=== PATIENT | female | born 1970 | race Caucasian/White ===

== ENCOUNTER 2019-07-13 09:02 | Emergency (ER) | payer SELFPAY ==
[~2019-07-13] VITALS: Ht 167.6 cm; Wt 59.0 kg
[~2019-07-13 09:02] MED LIST: BACTRIM DS TAB1 EACH PO; CELEXA40 MG PO; CEPHALEXIN500 MG PO; DAYPRO600 MG PO; IBUPROFEN600 MG PO; IBUPROFEN800 MG PO; MOTRIN IB200 MG PO; NORCO 5-325 TA1 EACH PO; NORCO 7.5-3251 EACH PO; PERCOCET 5-3251 EACH PO; ZITHROMAX500 MG; ZOFRAN ODT4 MG PO; ZOFRAN4 MG; ZOFRAN8 MG PO
--- OUTSIDE RECORDS SUMMARY | 2019-07-13 09:04 | XMS ---
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 Current Orthopedic Surgery \T\ Fracture Clinic PHONE: Unknown Solange has no Care Guidelines for this patient. Jessica VISIT COUNT (12 MO.) [address] [place], [place] [address]Piyush [address] [place] [address] TOTAL 2 NOTE: Visits indicate total known visits. ED/UCC VISIT TRACKING (12 MO.) 07/13/2019 09:03 LALITA Irvin TYPE: Emergency COMPLAINT: - VAGINAL PAIN [facility]09/2019 08[facility] TYPE: Emergency COMPLAINT: - Vaginal pain / Dyspareunia_PMD UNK INPATIENT VISIT TRACKING (12 MO.) No inpatient visits to display in this time frame [email or web address]
== END 2019-07-13 10:00 | disposition home or self-care (01) ==
LOC: ED 09:02
DX: R10.2 Pelvic and perineal pain (principal)

== ENCOUNTER 2020-03-24 17:49 | Emergency (ER) | payer OTHER ==
[~2020-03-24] VITALS: Ht 167.6 cm; Wt 59.0 kg
--- OUTSIDE RECORDS SUMMARY | 2020-03-24 17:52 | XMS ---
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 Events No recent Security Events currently on file CRITERIA MET - [facility] Guidelines CARE PROVIDERS Dread Conroy Community Health Worker 07/26/2019-Current Virk - PHONE: [phone] JOCELYN PAINTING Nurse Practitioner: 07/14/2019-Current PHONE: [phone] PAWAN MCCLELLAND Obstetrics LizaT\ Gynecology 07/14/2019-Current PHONE: [phone] Guidelines Source: [facility] Ana Menezes Guidelines Date: 07/16/2019 Care Coordination: Receives mental health services with [facility].\T\nbsp; Please contact [facility] regarding mental health concerns. [place] Office: , [place] Office: [phone].\T\nbsp; [facility] Crisis: [phone]. Care History Medical/Surgical 07/14/[address] [facility] - Patient is currently established with [facility]. If patient is seen in the ED during business hours. Please contact CHWs at [facility]. Care Recommendation: If this patient has had 5 or more Emergency Department visits in the last 12 months.\T\nbsp; Patient will require education on the scope and purpose of the ED as an acute care provider not a Primary Care Provider and should not be utilized for chronic conditions.\T\nbsp; These are guidelines and the provider should exercise clinical judgment when providing care. E.D. VISIT COUNT (12 MO.) 1 [facility] 1 [facility] 2 [facility]. TOTAL 4 NOTE: Visits indicate total known visits. ED/UCC VISIT TRACKING (12 MO.) 03/24/2020 17:51 LALITA Hurtado [place] TYPE: Emergency COMPLAINT: - CHEST PAIN, BACK/STOMACH PAIN, N/V 07/21/2019 12:39 [facility] [place] TYPE: Emergency DIAGNOSES: - Encounter for general adult medical examination without abnormal findings - VAGINAL PAIN - Dysuria 07/13/2019 09:03 LALITA Hurtado [place] TYPE: Emergency COMPLAINT: - VAGINAL PAIN,MSE TO DR MCCLELLAND DIAGNOSES: - Pelvic and perineal pain 07/09/2019 08:58 [facility] [place] JOSHI TYPE: Emergency COMPLAINT: - Vaginal pain / Dyspareunia_PMD K DIAGNOSES: 0. Pelvic and perineal pain 1. Urinary tract infection, site not specified 2. Allergy status to penicillin 3. Allergy status to other antibiotic agents 4. Allergy status to analgesic agent INPATIENT VISIT TRACKING (12 MO.) No inpatient visits to display in this time frame [id number]
[2020-03-24] MEDS ORDERED: MONO-LINYAH1 EACH PO (18:09)
[2020-03-24] MEDS ORDERED: PROTONIX40 MG PO (20:28)
--- NOTE | 2020-03-25 14:35 | EKG ---
[facility] [address] [facility] [place], [place] [address] Signed Normal sinus rhythm Normal ECG No previous ECGs available Confirmed by JOSE SOOD DO ([id number]) on 03/25/2020 2:34:57 PM Electronically Signed By: JOSE SOOD DO 03/25/20 1435 PATIENT NAME: KATHY MARTINEZ Electrocardiogram DATE OF : 72 PHYSICIAN: JOSE SOOD DO REPORT #: [id number] REPORT IS CONFIDENTIAL AND NOT TO BE RELEASED WITHOUT AUTHORIZATION
[2020-03-25] MEDS ORDERED: NORCO 5-325 TA1 EACH PO (22:20)
[2020-03-25] MEDS ORDERED: PROMETHAZINE HC25 M1 PR (22:20)
== END 2020-03-24 20:53 | disposition home or self-care (01) ==
LOC: ED 17:49
DX: R10.13 Epigastric pain (principal); Z88.0 Allergy status to penicillin; Z88.5 Allergy status to narcotic agent; Z88.8 Allergy status to other drugs, medicaments and biological substances; Z91.018 Allergy to other foods; Z79.899 Other long term (current) drug therapy
CPT/HCPCS: 80053; 81001; 83690; 83735; 84484; 84703; 85025; 93005; 93010; 96374; 99284-25; J2405

== ENCOUNTER 2020-03-25 19:53 | Emergency (ER) | payer OTHER ==
[~2020-03-25] VITALS: Ht 167.6 cm; Wt 59.0 kg
[~2020-03-25 19:53] MED LIST changes: +MONO-LINYAH1 EACH PO; +PROTONIX40 MG PO
--- OUTSIDE RECORDS SUMMARY | 2020-03-25 19:56 | XMS ---
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 Events No recent Security Events currently on file CRITERIA MET - [facility] - Has Care Guidelines - [facility] - 2 Visits in 30 Days CARE PROVIDERS Dread Conroy Community Health Worker 07/26/2019-Nico Reynaa - PHONE: [phone] JOCELYN PAINTING Nurse Practitioner: 07/14/2019-Current PHONE: [phone] PAWAN MCCLELLAND Obstetrics \T\ Gynecology 07/14/2019-Current PHONE: [phone] Guidelines Source: [facility] Ana Strickland Date: 07/16/2019 Care Coordination: Receives mental health services with [facility]T\nbsp; Please contact [facility] regarding mental health concerns. [place] Office: , [place] Office: [phone].\T\nbsp; Jamin Crisis: [phone]. Care History Medical/Surgical 07/14/2019 [facility] - Patient is currently established with [facility]. If patient is seen in the ED during business hours. Please contact CHWs at [facility]. Care Recommendation: If this patient has had [...] care. E.D. VISIT COUNT (12 MO.) 1 [facility] 1 [facility] [address] [facility]. TOTAL 5 NOTE: Visits indicate total known visits. ED/UCC VISIT TRACKING (12 MO.) 03/25/2020 19:54 LALITA Hurtado [place] TYPE: Emergency COMPLAINT: - CHEST PAIN/FLANK PAIN 03/24/2020 17:51 LALITA Hurtado [place] TYPE: Emergency COMPLAINT: - CHEST PAIN, BACK/STOMACH PAIN, N/V 07/21/2019 12:39 [facility] [place] TYPE: Emergency DIAGNOSES: - Encounter for general adult medical examination without abnormal findings - VAGINAL PAIN - Dysuria 07/13/2019 09:03 LALITA Hurtado [place] TYPE: Emergency COMPLAINT: - VAGINAL PAIN,MSE TO DR MCCLELLAND DIAGNOSES: - Pelvic and perineal pain 07/09/2019 08:58 [facility] [place] JOSHI TYPE: Emergency COMPLAINT: - Vaginal pain / Dyspareunia_PMD UNK DIAGNOSES: 0. Pelvic and perineal pain 1. Urinary tract infection, site not specified 2. Allergy status to penicillin 3. Allergy status to other antibiotic agents 4. Allergy status to analgesic agent INPATIENT VISIT TRACKING (12 MO.) No inpatient visits to display in this time frame [email or web address]
[2020-03-25] MEDS ORDERED: NORCO 5-325 TA1 EACH PO (22:20)
[2020-03-25] MEDS ORDERED: PROMETHAZINE HC25 M1 PR (22:20)
== END 2020-03-25 22:52 | disposition home or self-care (01) ==
LOC: ED 19:53
DX: R10.13 Epigastric pain (principal); R10.11 Right upper quadrant pain; K21.9 Gastro-esophageal reflux disease without esophagitis; Z88.5 Allergy status to narcotic agent; Z88.8 Allergy status to other drugs, medicaments and biological substances; Z88.0 Allergy status to penicillin; Z91.018 Allergy to other foods; Z79.899 Other long term (current) drug therapy
CPT/HCPCS: 76705; 80053; 83690; 85025; 96361; 96374; 96375; 99284-25; J1170; J2405; J2550; J7030

== ENCOUNTER 2021-01-15 19:02 | Emergency (ER) | payer OTHER ==
[~2021-01-15] VITALS: Ht 170.2 cm; Wt 63.5 kg
[~2021-01-15 19:02] MED LIST changes: +PROMETHAZINE HC25 M1 PR
== END 2021-01-15 21:27 | disposition home or self-care (01) ==
LOC: ED 19:02
DX: S06.0X0A Concussion without loss of consciousness, initial encounter (principal); S16.1XXA Strain of muscle, fascia and tendon at neck level, initial encounter; S00.03XA Contusion of scalp, initial encounter; Y04.8XXA Assault by other bodily force, initial encounter; Z88.8 Allergy status to other drugs, medicaments and biological substances; Z88.0 Allergy status to penicillin; Z88.5 Allergy status to narcotic agent; Z91.018 Allergy to other foods; Z79.899 Other long term (current) drug therapy
CPT/HCPCS: 70450; 72125; 99284-25

== ENCOUNTER 2021-01-18 19:02 | Emergency (ER) | payer OTHER ==
[~2021-01-18] VITALS: Ht 170.2 cm; Wt 63.5 kg
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
[2021-01-18] MEDS ORDERED: ZOFRAN4 MG PO (21:27)
== END 2021-01-18 21:41 | disposition home or self-care (01) ==
LOC: ED 19:02
DX: F07.81 Postconcussional syndrome (principal); Z88.0 Allergy status to penicillin; Z88.5 Allergy status to narcotic agent; Z88.8 Allergy status to other drugs, medicaments and biological substances; Z91.018 Allergy to other foods
CPT/HCPCS: 70450; 99285-25

== ENCOUNTER 2021-02-19 10:14 | Emergency (ER) | payer OTHER ==
[~2021-02-19] VITALS: Ht 170.2 cm; Wt 63.5 kg
[~2021-02-19 10:14] MED LIST changes: +ZOFRAN4 MG PO
== END 2021-02-19 15:57 | disposition home or self-care (01) ==
LOC: ED 10:14
DX: U07.1 COVID-19 (principal); K21.9 Gastro-esophageal reflux disease without esophagitis; Z88.0 Allergy status to penicillin; Z88.5 Allergy status to narcotic agent; Z88.8 Allergy status to other drugs, medicaments and biological substances; Z91.018 Allergy to other foods
CPT/HCPCS: 99284; C9803; U0003

== ENCOUNTER 2021-07-07 08:15 | Emergency (ER) | payer OTHER ==
[~2021-07-07] VITALS: Ht 170.2 cm; Wt 63.5 kg
== END 2021-07-07 08:45 | disposition home or self-care (01) ==
LOC: ED 08:15
DX: H72.91 Unspecified perforation of tympanic membrane, right ear (principal); K21.9 Gastro-esophageal reflux disease without esophagitis; Z88.5 Allergy status to narcotic agent; Z88.0 Allergy status to penicillin; Z91.018 Allergy to other foods
CPT/HCPCS: 99283

== ENCOUNTER 2021-07-20 06:44 | Emergency (ER) | payer OTHER ==
[~2021-07-20] VITALS: Ht 170.2 cm; Wt 68.3 kg
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
[2021-07-20] MEDS ORDERED: ONDANSETRON ODT8 MG PO (08:17)
[2021-07-21] MEDS ORDERED: HYDROCODON-ACE1 EA10 PO (23:15)
== END 2021-07-20 08:45 | disposition home or self-care (01) ==
LOC: ED 06:44
DX: K52.9 Noninfective gastroenteritis and colitis, unspecified (principal); K21.9 Gastro-esophageal reflux disease without esophagitis; Z88.8 Allergy status to other drugs, medicaments and biological substances; Z88.0 Allergy status to penicillin; Z88.5 Allergy status to narcotic agent; Z91.018 Allergy to other foods
CPT/HCPCS: 36415; 80048; 81001; 85025; 87088; 96374; 96375; 99284-25; J1885; J2405; J7030

== ENCOUNTER 2021-07-21 16:45 | Emergency (ER) | payer OTHER ==
[~2021-07-21] VITALS: Ht 170.2 cm; Wt 68.0 kg
[~2021-07-21 16:45] MED LIST changes: +ONDANSETRON ODT8 MG PO
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
[2021-07-21] MEDS ORDERED: HYDROCODON-ACE1 EA10 PO (23:15)
== END 2021-07-21 23:24 | disposition home or self-care (01) ==
LOC: ED 16:45
DX: R10.84 Generalized abdominal pain (principal); K21.9 Gastro-esophageal reflux disease without esophagitis; Z88.5 Allergy status to narcotic agent; Z91.018 Allergy to other foods; Z88.0 Allergy status to penicillin; Z88.8 Allergy status to other drugs, medicaments and biological substances
CPT/HCPCS: 36415; 74177; 84703; 85025; 96375; 96376; 99284-25; J1885; J2405; J7030

== ENCOUNTER 2021-10-19 08:39 | Emergency (ER) | payer OTHER ==
[~2021-10-19] VITALS: Ht 170.2 cm; Wt 73.3 kg
[~2021-10-19 08:39] MED LIST changes: +HYDROCODON-ACE1 EA10 PO
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
[2021-10-19] MEDS ORDERED: VENTOLIN HFA18 GM INH (10:21)
== END 2021-10-19 10:30 | disposition home or self-care (01) ==
LOC: ED 08:39
DX: J10.1 Influenza due to other identified influenza virus with other respiratory manifestations (principal); K21.9 Gastro-esophageal reflux disease without esophagitis; Z88.5 Allergy status to narcotic agent; Z88.0 Allergy status to penicillin; Z88.8 Allergy status to other drugs, medicaments and biological substances; Z20.822 Contact with and (suspected) exposure to COVID-19
CPT/HCPCS: 71045; 87502; 94640; 94664; 99283-25; C9803; U0003

== ENCOUNTER 2025-05-02 23:33 | Emergency (ER) | payer OTHER ==
[~2025-05-02] VITALS: Ht 170.2 cm; Wt 88.0 kg
[~2025-05-02 23:33] MED LIST changes: +VENTOLIN HFA18 GM INH
[2025-05-03 01:25] VITALS: BP 125/81
== END 2025-05-03 01:27 | disposition home or self-care (01) ==
LOC: ED 23:33
DX: M79.602 Pain in left arm (principal); M79.672 Pain in left foot; K21.9 Gastro-esophageal reflux disease without esophagitis; Z91.018 Allergy to other foods; Z88.0 Allergy status to penicillin; Z88.5 Allergy status to narcotic agent; Z88.8 Allergy status to other drugs, medicaments and biological substances
CPT/HCPCS: 73060; 73630; 99284